=== PATIENT | male | born 1970 | race Hispanic/Latino ===

== ENCOUNTER 2020-12-05 15:12 | Observation (INO) | payer BC, OTHER ==
--- OUTSIDE RECORDS SUMMARY | 2020-12-05 15:17 | XMS REPORT | Continuity of Care Document ---
:1970 Author Organization [facility] t Address [address] [place] [address] Care Team Providers Name Role Phone David Goel Attending Clinician Problems Condition Condition Condition Status Onset Resolution Last Treating Co mments Source Name Details Category Date Date Treatment Clinician Date M5.12 - Diagnosis Active [id number] M emoria RADICULOPA 1- 11:36:00 l THY, M54.12 - 00:01: [place] n CERVICAL RADICULOPA 00 REGION THY, CERVICAL REGION Active 09/15/2019 [facility] [place] NECK, BACK Diagnosis Active 2019-12-29 Memoria KNEE PAIN 9- 23:59:00 l NECK, 08:00: [place] BACK KNEE 00 PAIN Active 07/12/2019 S[facility] [place] Simple Problem Active 2020-01-23 Memor ia obesity 00:16:44 l (disorder) Simple Herm karin obesity (disorder) Active Problem 01/23/2020 [facility] [place] Allergies, Adverse Reactions, Alerts Allergy Allergy Status Severity Reaction(s) Onset Inactive Treating Comm ents Source Name Type Date Date Clinician No Known No Known Active Memori a Medicati Medicati l on on Aníbal Allergie Allergie s s Social History Smoking Status Start Date Stop Date Source Social History [facility] Medications Ordered Filled Start Stop Current Ordering Indication Dosage Frequency Signature Comments Components Source Medication Medication Date Date Medication? Clinician (SIG) Name Name naproxen Yes 500 mg = 1 Mem oria 500 mg oral 3-10 tab, PO, l enteric 19:44: BID, # 60 Kathie nn coated 00 tab, 0 delayed-rel Refill(s), ease tablet Pharmacy: [facility] #[id number] Famotidine Yes 1 tab, PO, M emoria 26.6 MG / 3-05 TID, PRN l Ibuprofen 16:58: Pain, X 30 He rmann 800 MG Oral 00 day, # 90 Tablet tab, 0 [Duexis] Refill(s), Pharmacy: [facility] 2018-11 No 40 mg, Steve rogers ne 11-11 Route: l ACETONIDE 14:14: intra-RENATA He rmann 40 mg/mL 00 CULAR, injectable Drug form: suspension INJ, ONCE, Dosing Weight 103.182, kg, (KENALOG), Start date: 09/11/19 9:14:00 CDT, Stop date: 09/11/19 9:14:00 CDT predniSONE 2018-11 Yes 40 mg = 2 Me moria 20 mg oral 0-04 tab, PO, l tablet 15:29: Daily, X 5 Kathie nn day, # 10 tab, 0 Refill(s), [id number] amoxicillin 2018-11 Yes 500 mg = 1 Memoria 500 mg oral 0-04 tab, PO, l tablet 14:58: Q8H, 0 [place] 00 Refill(s) Vital Signs Vital Name Observation Time Observation Value Comments Source BP Diastolic 2019-02-17 00:00:00 86 mm[Hg] [facility] Height 2019-02-17 00:00:00 69 [in_i] [facility] BMI (Body Mass 2019-02-17 00:00:00 34 kg/m2 [facility]) Group BP Systolic 2019-02-17 00:00:00 122 mm[Hg] [facility] Body Weight 2019-02-17 00:00:00 230 [lb_av] [facility] Height 2020-01-14 16:02:00 176.53 cm [facility] Weight 2020-01-14 16:02:00 [facility] BMI Calculated 2020-01-14 16:02:00 Memori al [place] Systolic (mm Hg) 2020-01-14 16:02:00 Steve rial Aníbal Diastolic (mm Hg) 2020-01-14 16:02:00 Mem orial Aníbal Heart Rate 2020-01-14 16:02:00 [facility] Temperature Oral (F) 2020-01-14 16:02:00 98.0 F [facility] [place] Systolic (mm Hg) 2019-09-11 13:17:00 Steve rial [place] Diastolic (mm Hg) 2019-09-11 13:17:00 Mem orial Aníbal Heart Rate 2019-09-11 13:17:00 [facility] Height 2019-09-11 13:17:00 176.53 cm [facility] [place] Weight 2019-09-11 13:17:00 [facility] BMI Calculated 2019-09-11 13:17:00 Memori al Aníbal Systolic (mm Hg) 2019-08-14 14:50:00 Steve rial [place] Diastolic (mm Hg) 2019-08-14 14:50:00 Mem orial Aníbal Heart Rate 2019-08-14 14:50:00 [facility] Height 2019-08-14 14:50:00 176.53 cm [facility] [place] Weight 2019-08-14 14:50:00 [facility] [place] BMI Calculated 2019-08-14 14:50:00 Memori al Aníbal Procedures Procedure Date / Time Performing Clinician Source Performed Arthrocentesis, 2019-09-11 14:14:00 [facility] aspiration and/or injection, major joint or bursa (eg, shoulder, hip, knee, subacromial bursa); without ultrasound guidance TYMPANOMETRY 2019-02-17 00:00:00 [facility] Carpal Tunnel Surgery [facility] Plan of Care Planned Activity Planned Date Details Comments Source Instructions Analy Medic al Group Encounters Start End Encounter Admission Attending Care Care Encounter Source Date/Time Date/Time Type Type Clinicians Facility Department ID 2020-01-19 2020-01-20 Outpatient [facility] [id number] 10:46:24 23:59:59 00 2020-01-14 2020-01-14 [facility] [id number] 10:00:00 23:59:59 Vincjolene Quan 2019-09-11 2019-09-11 Outpatient Manasa [facility] [id number] 08:30:00 23:59:59 Vincent Quan 2019-08-14 2019-08-14 [facility] [id number] 10:00:00 23:59:59 Vincent Quan 2019-08-14 2019-08-14 Outpatient Manasa [id number] [id number] 11:05:00 23:59:00 David Glass 2019-02-17 2019-02-17 Otilio [facility] [place] - [id number] [facility] 00:00:00 00:00:00 MD Olive: [address] Group [facility] - [address], Otolaryngol [place], [facility] [place] [address] , Ph. Results Test Description Test Time Test Comments Results Result Comments Source tympanogram 2019-02-17 15:04:27 Test Item Value Reference Range Interpretation Comme nts Right (test code = Right) Type A Normal Left (test code = Left) Type A Normal [facility]
--- OUTSIDE RECORDS SUMMARY | 2020-12-05 15:17 | XMS REPORT | Continuity of Care Document ---
:1970 Author Organization [facility] Care Team Providers Name Role Phone [facility] Unavailable Un available Problems Problem Status Onset Classification Date Comments Sourc e Date Reported M54.12 - Active [facility] RADICULOPATHY 9 [place] , CERVICAL REGION NECK, BACK Active [facility] KNEE PAIN 9 [place] Simple Active Problem 01/23/2020 Medica l obesity Group, (disorder) [facility] [place] Medications Medication Details Route Status Patient Ordering Order Source Instructions Provider Date naproxen 500 mg 500 mg = 1 Active oral enteric tab, PO, 020 Medical coated BID, # 60 Group delayed-release tab, 0 tablet Refill(s), Pharmacy: [facility] #[id number] Famotidine 26.6 1 tab, PO, Active MH MG / Ibuprofen TID, PRN 020 Medical 800 MG Oral Pain, X 30 Group Tablet [Duexis] day, # 90 tab, 0 Refill(s), Pharmacy: [facility] triamcinolone 40 mg, Inactive ACETONIDE 40 Route: 019 Medical mg/mL injectable intra-ARTICU Gr oup suspension LAR, Drug form: INJ, ONCE, Dosing Weight 103.182, kg, (KENALOG), Start date: 09/11/19 9:14:00 CDT, Stop date: 09/11/19 9:14:00 CDT predniSONE 20 mg 40 mg = 2 Active oral tablet tab, PO, 019 Medical Daily, X 5 Group day, # 10 tab, 0 Refill(s), Pharmacy: [facility] #[id number] amoxicillin 500 500 mg = 1 Active MH mg oral tablet tab, PO, 019 Medical Q8H, 0 Group Refill(s) Allergies, Adverse Reactions, Alerts Substance Category Reaction Severity Reaction Status Date Comments S ource type Reported No Known Assertion Drug Medication allergy Medic al Allergies Group Immunizations No Data Provided for This Section Results No Data Provided for This Section Pathology Reports No Data Provided for This Section Diagnostic Reports Report Value Date Source Spine cervical 2 or 3 STUDY: Cervical spine series, 4 views. 02/2019 [facility] [place] view DX COMPARISON: None HISTORY: - M54.12 Radiculopathy, cervical reg ion. FINDINGS: Cervical curvature: Straight ening of cervical curvature likely due to patient positioning or muscle spasm. Odontoid and lateral masses: Unremarkable. Vertebral body heights: Preserved. Intervertebral disc space: Preserved. Facet joints: Mild facet arthrosis in the lower cervical spine. Uncovertebral joints: Mild right uncovertebral a rthrosis at C5-C6. Perivertebral soft tissues: Within normal limits . IMPRESSION: Mild lower cervical spondylosis. Spine lumbar 2 or 3 STUDY: Lumbar spine series, 3 views. 019 [facility] [place] views DX COMPARISON: None HISTORY: - M54.5 Low back pain. FINDINGS: Lumbar curvature: Preserved. [id number]-[id number] lumbar vertebrae: Five. Vertebral body heights: Preserved. Intervertebral disc space: M ild disc height loss at L4-L5 and L5-S1. Bulky right paravertebral osteophytes is seen at L1-L2. Facet joints: Within normal limits. Perivertebral soft tissues: Within normal limits . IMPRESSION: Mild disc height loss at L4-L5 and L5-S1. Bulky osteophyte at L1-L2. Knee 3 Views Bilateral EXAM: Knee 3 Views Bilateral DX 9 [facility] [place] DX DATE: 08/14/2019 11:16 CDT. INDICATION: - M25.569 Pain in unspecified kne e. COMPARISON: None available. TECHNIQUE: 3 views of the bilateral knees. FINDINGS: No acute fracture or malalignment is identified. Ossific fragments in the popliteal fossa of the right knee. No knee joint effusion is detected. No acute soft tissue abnormality is identified. IMPRESSION: No significant degenerative changes. Few ossific fragments in the right popliteal fossa. For ligamentous injury, recommend orthopedic consultation and knee MR as clinically indicated. Consultation Notes No Data Provided for This Section Discharge Summaries No Data Provided for This Section History and Physicals No Data Provided for This Section Vital Signs Vital Sign Value Date Comments Source Height 176.53 cm 01/14/2020 [facility] Weight 101.818 01/14/2020 [facility] BMI Calculated 32.67 01/14/2020 [facility] Systolic (mm Hg) 109 01/14/2020 Medical Group Diastolic (mm Hg) 74 01/14/2020 Medical Group Heart Rate 95 01/14/2020 [facility] Temperature Oral (F) 98.0 F 01/14/2020 [facility]i reji Group Systolic (mm Hg) 116 09/11/2019 Medical Group Diastolic (mm Hg) 80 09/11/2019 Medical Group Heart Rate 99 09/11/2019 [facility] p Height 176.53 cm 09/11/2019 [facility] p Weight 103.182 09/11/2019 Medical [facility] p BMI Calculated 33.11 09/11/2019 [facility] oup Systolic (mm Hg) 114 08/14/2019 Medical Group Diastolic (mm Hg) 71 08/14/2019 Medical Group Heart Rate 86 08/14/2019 Medical [facility] p Height 176.53 cm 08/14/2019 [facility] p Weight 102.273 08/14/2019 Medical Gr[facility] p BMI Calculated 32.82 08/14/2019 [facility] Encounters Location Location Encounter Encounter Reason Attending ADM [place] Stat us Source Details Type Number For Provider Date Date Visit Outpatient [id number] 08/14 [facility] Outpatient [id number] 08/14 Primary [facility] [place] [facility] Outpt Diag [id number] 08/14 [facility] Outpatient Services [facility] [place] Outpatient [id number] 09/[address] [facility] Outpatient [id number] 09/11 Primary [facility] [place] Outpatient [id number] 10/[address] [facility] [place] Outpatient [id number] 01/13 [facility] Outpatient [id number] 01/13 [facility] [place] [facility] Phone [phone] 01/18 01/20 Primary Message /2019 [facility] [place] Procedures Procedure Code Date Perfomer Comments Source Arthrocentesis, 09/11/2019 Medica l aspiration and/or Group injection, major joint or bursa (eg, shoulder, hip, knee, subacromial bursa); without ultrasound guidance Assessment and Plan No Data Provided for This Section Plan of Care No Data Provided for This Section Social History Social History Date Source Social History TypeResponse 01/14/2020 [facility] Smoking Status Never smoker; Exposure to Tobacco Smoke None; Cigarette Smoking Last 365 Days No; Reg Smoking Cessation Counseling No entered on: 01/14/20 Social History TypeResponse 08/14/2019 [facility] [place] Smoking Status Never smoker; Exposure to Tobacco Smoke None; Cigarette Smoking Last 365 Days No; Reg Smoking Cessation Counseling No entered on: 08/14/19 Family History No Data Provided for This Section Advance Directives No Data Provided for This Section Functional Status No Data Provided for This Section
[2020-12-05] MEDS ORDERED: NA CHLORIDE 0.9% 1,000 ML ONE ×2 (15:35→18:21)
[2020-12-05 15:36] LABS: Absolute Lymphocytes (CBC) 1.5 K/uL (0.7-4.9); Basophils % 0.8 % (0-1.3); Hematocrit 46.1 % (39.6-49.0); Lymphocytes % 19.2 % (15.3-44.8); MPV 7.9 fL (7.6-11.3)
[2020-12-05 15:37] LABS: Protime INR 1.05
[2020-12-05 15:52] LABS: BUN Blood Urea Nitrogen 12 mg/dL (7-18); Bicarbonate 23 mmol/L (21-32); Glucose Level 186 mg/dL (74-106); Magnesium 2.1 mg/dL (1.8-2.4); NT PRO-BNP 15 pg/mL (<125); Potassium 3.5 mmol/L (3.5-5.1); Sodium Level 138 mmol/L (136-145); Troponin (Emerg Dept Use Only) < 0.02 ng/mL (0.0-0.045)
--- NOTE | 2020-12-05 16:32 | RAD REPORT ---
EXAM DESCRIPTION: RAD - Chest Single View - 12/05/2020 4:16 pm CLINICAL HISTORY: PALPITATIONS, COVID positive test result October 2020 COMPARISON: Two view chest August 2016 TECHNIQUE: AP portable chest image was obtained 12/05/2020 4:16 pm . FINDINGS: Lung volumes are low. No focal mass or consolidation. No failure or volume overload. Heart and vasculature are normal. No measurable pleural effusion and no pneumothorax. No acute bony abnorm ality seen. No acute aortic findings suspected. IMPRESSION: No acute cardiopulmonary process. No significant change from comparison.
--- NOTE | 2020-12-05 16:39 | RAD REPORT ---
EXAM DESCRIPTION: CT - Chest For Pe Angio - 12/05/2020 4:16 pm CLINICAL HISTORY: PALPITATIONS COMPARISON: Chest Single View dated 12/05/2020 TECHNIQUE: Dynamically enhanced 3 mm thick images of the chest were obtained during administration o f approximately 150mL Isovue 370 IV contrast. Coronal and oblique MIP reconstruction images were gene rated and reviewed. Exam utilizes a protocol to evaluate the pulmonary arterial tree. All CT scans are performed using dose optimization technique as appropriate and may include automated exposure control or mA/KV adjustment according to patient size. FINDINGS: No pulmonary emboli are identified. The aorta as imaged shows no acute or suspicious finding. No pericardial thickening or effusion. No mass or consolidation. Patient has a few faint areas of ground-glass opacification present. Findin g is minimal and could be atelectasis or minimal edema. Findings could be very earliest stages of the COVID-19 pneumonia given the current clinical environment. Non COVID viral infiltrate would be possi ble. These are minimal findings. No pneumothorax or pleural effusion. No mediastinal or hilar suspicious masses. No chest wall masses or abnormal axillary lymphadenopathy. Bilateral gynecomastia present. Very small hiatal hernia present. IMPRESSION: No pulmonary emboli identified. Patient has very minimal airspace opacities present. Findings are not yet sufficient for COVID-19 pne umonia diagnosis though very earliest form is possible given the current clinical environment.Atelect asis, minimal alveolar edema and non COVID viral processes are possible.
--- NOTE | 2020-12-05 17:17 | EDPHYS ---
Physician Documentation [facility] Name: Jose Welsh Age: 50 yrs Sex: Male : 1970 Arrival Date: 12/05/2020 Time: 15:13 Bed 7 Private MD: ED Physician Moises Lujan HPI: 12/05 15:16 This 50 yrs old Male presents to ER via EMS with complaints of Dizziness. rn 15:16 The patient presents with dizziness, feeling faint, generalized weakness, rn lightheadedness. Onset: The symptoms/episode began/occurred just prior to arrival. Context: occurred at work, occurred while the patient was working, just prior to the episode the patient experienced no apparent symptoms. Modifying factors: the symptoms are aggravated by movement of head, standing up. Severity of symptoms: At their worst the symptoms were moderate in the emergency department the symptoms have improved. The patient has not experienced similar symptoms in the past. The patient has not recently seen a physician. Reports dizziness that began while working, using hand tools, denies chest pain, reports felt lightheaded and like might pass out. [place] palpitations. Diagnosed with COVID 1 month ago, doesn't feel like completely got over it, still feels intermittent sob. No hemoptysis. NO productive cough. No blood in stool. . Historical: - Allergies: 15:33 No Known Allergies; jl7 - Home Meds: 15:33 None [Active]; jl7 - PMHx: 15:33 None; jl7 - PSHx: 15:33 None; jl7 - Immunization history:: Adult Immunizations unknown. - Social history:: Smoking status: Patient denies any tobacco usage or history of. - Family history:: not pertinent. - Hospitalizations: : No recent hospitalization is reported. ROS: 15:16 Constitutional: Negative for fever, chills, and weight loss, Eyes: Negative for injury, rn pain, redness, and discharge, Neck: Negative for injury, pain, and swelling, Cardiovascular: Negative for edema Respiratory: Negative for cough, wheezing, and pleuritic chest pain, Abdomen/GI: Negative for abdominal pain, nausea, vomiting, diarrhea, and constipation, MS/Extremity: Negative for injury and deformity, Skin: Negative for injury, rash, and discoloration, Neuro: Negative for headache, numbness, tingling, and seizure. Exam: 15:16 Constitutional: This is a well developed, well nourished patient who is awake, alert, rn and in no acute distress. Head/Face: Normocephalic, atraumatic. Eyes: Pupils equal round and reactive to light, extra-ocular motions intact. Lids and lashes normal. Conjunctiva and sclera are non-icteric and not injected. Cornea within normal limits. Periorbital areas with no swelling, redness, or edema. ENT: dry MM Cardiovascular: Tachycardic, regular Respiratory: Speaking full sentences, unlabored. No increased work of breathing, no retractions or nasal flaring. Abdomen/GI: Soft, non-tender Skin: Warm, dry MS/ Extremity: Pulses equal, no cyanosis. Neuro: Awake and alert, GCS 15, oriented to person, place, time, and situation. Cranial nerves II-XII grossly intact. Motor strength 5/5 in all extremities. Sensory grossly intact. Cerebellar exam normal. 15:29 ECG was reviewed by the Attending Physician. rn Vital Signs: 15:14 BP 125 / 85; Pulse 114; Resp 17; Temp 98.7(O); Pulse Ox 97% on R/A; sv 15:36 BP 136 / 89; Pulse 103; Resp 14; Pulse Ox 98% ; Weight 102.06 kg; jl7 16:42 BP 118 / 87; Pulse 101; Resp 20; Pulse Ox 96% ; sv MDM: 15:14 Patient medically screened. rn 17:10 Differential diagnosis: cardiac arrhythmia, generalized weakness, hyperventilation, rn hypovolemia, idiopathic dizziness, near-syncope, PE, COVID. 17:11 Data reviewed: vital signs, nurses notes, lab test result(s), EKG, radiologic studies, rn CT scan, plain films, and as a result, I will admit patient. Counseling: I had a detailed discussion with the patient and/or guardian regarding: the historical points, exam findings, and any diagnostic results supporting the discharge/admit diagnosis, lab results, radiology results, the need for further work-up and treatment in the hospital. ED course: Pt still tachycardic, twave inversions anterior leads, CT PE neg, reports exertional dizziness and palpitations along with near syncope. Trop neg. Will admit to Dr. Lujan for cardiac eval and further care. . 12/05 15:16 Order name: Basic Metabolic Panel rn 12/05 15:16 Order name: CBC with Diff; Complete Time: 16:08 rn 12/05 15:16 Order name: Magnesium; Complete Time: 16:08 rn 12/05 15:16 Order name: NT PRO-BNP; Complete Time: 16:08 12/05 15:16 Order name: PT-INR; Complete Time: 16:08 rn 12/05 15:16 Order name: Troponin (emerg Dept Use Only); Complete Time: 16:08 rn 12/05 15:16 Order name: XRAY Chest (1 view); Complete Time: 16:57 rn 12/05 15:16 Order name: EKG; Complete Time: 15:17 12/05 15:16 Order name: CT Chest For PE Angio; Complete Time: 16:57 rn 12/05 15:16 Order name: Basic Metabolic Panel; Complete Time: 16:08 EDMS 12/05 15:16 Order name: Cardiac monitoring; Complete Time: 15:36 12/05 15:16 Order name: EKG - Nurse/Tech; Complete Time: 15:12/05 15:16 Order name: IV Saline Lock; Complete Time: 15:36 12/05 15:16 Order name: Labs collected and sent; Complete Time: 15:35 12/05 15:16 Order name: O2 Per Protocol; Complete Time: 15:35 12/05 15:16 Order name: O2 Sat Monitoring; Complete Time: 15:35 12/05 17:40 Order name: CONS Physician Consult; Complete Time: 18:21 EDMS EC:29 Rate is 109 beats/min. Rhythm is regular. MO interval is normal. QRS interval is rn normal. QT interval is normal. No Q waves. T waves are Inverted in leads V1, V2, V3. No ST changes noted. Clinical impression: NSR w/ Non-specific ST/T Changes and Sinus tachycardia. Interpreted by me. Reviewed by me. Administered Medications: 15:35 Drug: NS 0.9% 1000 ml Route: IV; Rate: 1000 ml; Site: right forearm; jl7 16:30 Follow up: Response: No adverse reaction; IV Status: Completed infusion; IV Intake: jl7 1000ml 18:00 Drug: ToPROL XL 25 mg Route: PO; jl7 19:11 Follow up: Response: No adverse reaction jl7 18:05 Drug: NS 0.9% 1000 ml Route: IV; Rate: 1 bolus; Site: right forearm; 7 19:11 Follow up: IV Status: Completed infusion jl7 Disposition: 12/05/20 17:17 Hospitalization ordered by Radhames Lujan for Observation. Preliminary diagnosis are Palpitations, Dyspnea, unspecified, Near syncope. - Bed requested for Telemetry/MedSurg (observation). - Status is Observation. rv - Condition is Stable. - Problem is new. - Symptoms have improved. Signatures: Dispatcher [employer] EDCO Moises Lujan MD MD rn Leal, Jahala, RN RN jl7 Rah Telles RN RN rv Corrections: (The following items were deleted from the chart) 18:11 17:12 CORONAVIRUS+MR.LAB.BRZ ordered. [facility] 19:35 17:17 Hospitalization Ordered by Radhames Lujan MD for Observation. Preliminary rv diagnosis is Palpitations; Dyspnea, unspecified; Near syncope. Bed requested for Telemetry/MedSurg (observation). Status is Observation. Condition is Stable. Problem is new. Symptoms have improved. rn
--- NOTE | 2020-12-05 17:17 | ER ---
Nurse's Notes [facility] Name: Jose Welsh Age: 50 yrs Sex: Male : 1970 Arrival Date: 12/05/2020 Time: 15:13 Bed 7 Private MD: Diagnosis: Palpitations;Dyspnea, unspecified;Near syncope Presentation: 12/05 15:14 Coronavirus screen: Client reports previous positive COVID test result. Date of sv collection: October 2020. Ebola Screen: No symptoms or risks identified at this time. Initial Sepsis Screen: Does the patient meet any 2 criteria? HR > 90 bpm. No. Patient's initial sepsis screen is negative. Does the patient have a suspected source of infection? No. Patient's initial sepsis screen is negative. Risk Assessment: Do you want to hurt yourself or someone else? Patient reports no desire to harm self or others. 15:14 Method Of Arrival: EMS: [facility] sv 15:15 Chief complaint: EMS states: At work and reported feeling 'faint', denies pain, had jl7 COVID in October 2020, HR 129, diaphoretic on arrival, BGL 159. Onset of symptoms is unknown. Care prior to arrival: None. Transition of care: patient was not received from another setting of care. 15:15 Acuity: ADILENE 2 jl7 Triage Assessment: 15:15 General: Appears in no apparent distress. uncomfortable, Behavior is calm, cooperative, jl7 appropriate for age. Pain: Denies pain. Neuro: Level of Consciousness is awake, alert, obeys commands, Oriented to person, place, time, situation. Cardiovascular: Patient's skin is warm and dry. Respiratory: Airway is patent Respiratory effort is even, unlabored, Respiratory pattern is regular, symmetrical. GI: No signs and/or symptoms were reported involving the gastrointestinal system. : No signs and/or symptoms were reported regarding the genitourinary system. Derm: Skin is diaphoretic, Skin is normal, Skin temperature is cool. Historical: - Allergies: 15:33 No Known Allergies; jl7 - Home Meds: 15:33 None [Active]; jl7 - PMHx: 15:33 None; jl7 - PSHx: 15:33 None; jl7 - Immunization history:: Adult Immunizations unknown. - Social history:: Smoking status: Patient denies any tobacco usage or history of. - Family history:: not pertinent. - Hospitalizations: : No recent hospitalization is reported. Screenin:15 Abuse screen: Denies threats or abuse. Denies injuries from another. Nutritional sv screening: No deficits noted. Tuberculosis screening: No symptoms or risk factors identified. Fall Risk None identified. Assessment: 15:35 General: See triage assessment. jl7 16:21 Reassessment: Senia [phone]. hb 18:00 Reassessment: Hospitalist Dr. Lujan at bedside, VO for 25 mg Toprol XL PO x 1 and 1 L jl7 NS bolus and then pt will be discharged. Vital Signs: 15:14 BP 125 / 85; Pulse 114; Resp 17; Temp 98.7(O); Pulse Ox 97% on R/A; sv 15:36 BP 136 / 89; Pulse 103; Resp 14; Pulse Ox 98% ; Weight 102.06 kg; jl7 16:42 BP 118 / 87; Pulse 101; Resp 20; Pulse Ox 96% ; sv ED Course: 15:13 Patient arrived in ED. ds1 15:13 Zoe Christian, RN is Primary Nurse. sv 15:14 Moises Lujan MD is Attending Physician. rn 15:15 Arm band placed on. sv 15:15 Patient has correct armband on for positive identification. Placed in gown. Bed in low sv position. Call light in reach. Side rails up X2. court recording monitor on. Pulse ox on. NIBP on. Door closed. Head of bed elevated. 15:29 Primary Nurse role handed off by Zoe Christian RN jl7 15:29 Helen Garcia, YAQUELIN is Primary Nurse. jl7 15:32 Triage completed. jl7 15:34 Initial lab(s) drawn, by mt, sent to lab. EKG done, by ED staff, reviewed by Moises Lujan MD. Inserted saline lock: 20 gauge in right forearm, using aseptic technique. Blood collected. 15:46 Basic Metabolic Panel Sent. sv 16:16 XRAY Chest (1 view) In Process Unspecified. EDMS 16:16 CT Chest For PE Angio In Process Unspecified. EDMS 17:16 Radhames Lujan MD is Hospitalizing Provider. rn 18:21 COVID swab sent to lab. mh5 19:15 Primary Nurse role handed off by Helen Garcia RN mw2 19:34 Rah Telles, RN is Primary Nurse. rv 19:34 No provider procedures requiring assistance completed. IV discontinued, intact, rv bleeding controlled, No redness/swelling at site. Pressure dressing applied. Administered Medications: 15:35 Drug: NS 0.9% 1000 ml Route: IV; Rate: 1000 ml; Site: right forearm; jl7 16:30 Follow up: Response: No adverse reaction; IV Status: Completed infusion; IV Intake: jl7 1000ml 18:00 Drug: ToPROL XL 25 mg Route: PO; jl7 19:11 Follow up: Response: No adverse reaction jl7 18:05 Drug: NS 0.9% 1000 ml Route: IV; Rate: 1 bolus; Site: right forearm; jl7 19:11 Follow up: IV Status: Completed infusion jl7 Intake: 16:30 IV: 1000ml; Total: 1000ml. jl7 Outcome: 17:17 Decision to Hospitalize by Provider. rn 19:35 Admitted to ER Hold. Please see [facility] for further documentation. rv 19:35 Condition: improved 19:35 Instructed on the need for admit. 19:35 Patient left the ED. rv Signatures: Dispatcher [employer] EDMS Zoe Christian RN Padmini Grijalva ds1 Moises Lujan MD MD rn Baxter, Heather, RN RN hb Martinez, Maria [facility] Helen Garcia RN RN jl7 Trevon Serra mw2 Rah Telles RN RN rv
--- NOTE | 2020-12-05 18:18 | P.SSS ---
Patient History Date of Service: 12/05/20 Reason for admission: Palpitations, lightheadedness History of Present Illness: 50-year-old male, no significant past medical history presents to the ED after a few brief episodes of dizziness and palpitations. 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 He states while he was working he felt lightheaded, palpitations, and some tingling in both arms. These episodes were brief and happened few more times. He has never felt anything like this before. He also reports a mild cough over the past few days. He otherwise denies any fevers, chills, chest pain, abdominal pain, rashes/lesions, and change in bowel/urinary habits, leg swelling. He does not smoke. In the ED, workup revealed a mildly elevated creatinine, negative troponin, and EKG with right bundle-branch block with T-wave inversions in leads V 2-4. CTA chest negative for PE. Notable for a very minimal airspace opacities present. Home Medications: Metoprolol Succinate [Toprol Xl] 25 mg PO DAILY 30 Days #30 tab.sr.24h 12/05/20 - Past Medical/Surgical History Diabetic: No Past Medical History: Patient denies medical history Past Surgical History: Patient denies surgical history - Family History Family History: Reviewed- Non-Contributory - Social History Smoking Status: Never smoker Alcohol use: Yes Place of Residence: Home Review of Systems 10-point ROS is otherwise unremarkable Physical Examination - Physical Exam General: Alert, In no apparent distress, Oriented x3 HEENT: Sclerae nonicteric Neck: Supple Respiratory: Clear to auscultation bilaterally, Normal air movement Cardiovascular: No edema, No rubs, No murmurs, Irregular heart rate/rhythm (Sinus tachycardia HR: 95-110) Gastrointestinal: Soft and benign, Non-distended, No tenderness Musculoskeletal: No tenderness Integumentary: No rashes, No significant lesion Neurological: Normal speech, Normal strength at 5/5 x4 extr Urinary: Other (Urinal with dark dinorah urine) - Studies Laboratory Data (last 24 hrs) 12/05/20 15:15: PT 12.4, INR 1.05 12/05/20 15:15: WBC 7.70, Hgb 15.4, Hct 46.1, Plt Count 300 12/05/20 15:15: Sodium 138, Potassium 3.5, BUN 12, Creatinine 1.44 H, Glucose 186 H, Magnesium 2.1 Treatment Summary: Patient received 1 L IV fluid bolus in the ED with slight improvement of his heart rate. He was admitted for further evaluation. Cardiology was consulted, reviewed the EKG and felt the patient was okay for discharge home on Toprol-XL 25 mg daily, and to follow up in their office tomorrow morning at 8 a.m. Patient was given additional 1L IVF and Toprol XL. Patient felt well and was in agreement with the plan. - Disposition Discharge Date: 12/05/20 Disposition: ROUTINE DISCHARGE Condition: GOOD Prescriptions: Metoprolol Succinate [Toprol Xl] 25 mg PO DAILY 30 Days #30 tab.sr.24h Followup: KeanuOTKeanuOT [Primary Care Provider] - Patient Discharge Instructions: You were found to have sinus tachycardia and a right bundle branch block. You were also found to be dehydrated. You are discharged with a prescription for metoprolol 25mg once a day. You are to follow up with Dr. Lipscomb (Cardiology) in his office tomorrow (12/06) at 8am. Diet: Regular Activity: Ad kimberlee Time Spent Managing Pts Care (In Minutes): 60
[2020-12-05] MEDS ORDERED: METOPROLOL XL 50 MG TAB PO ONE (18:21)
[2020-12-05] MEDS ORDERED: NA CHLORIDE 0.9% 1,000 ML IV SCH (19:03)
[2020-12-05] MEDS ORDERED: ACETAMINOPHEN 500 MG TAB PO PRN (19:03)
[2020-12-05] MEDS ORDERED: METOPROLOL XL 25 MG TAB PO SCH (19:03)
[2020-12-05 19:06] VITALS: BP 129/87
[2020-12-05 19:18] VITALS: BMI 32.5
[2020-12-05 19:40] VITALS: TEMP 98.7
[2020-12-05 19:42] VITALS: O2SAT 96
[2020-12-05] MEDS ORDERED: ATORVASTATIN 40 MG TAB PO SCH (21:00)
[2020-12-06] MEDS ORDERED: ASPIRIN EC 81 MG TAB PO SCH (09:00)
[2020-12-06] MEDS ORDERED: ENOXAPARIN 40 MG/0.4 ML SQ SCH (09:00)
--- NOTE | 2020-12-07 06:33 | EKG ---
Test Date: 2020-12-05 Test Time: 15:23:44 M48/M60 Tank Driver: CLAUDETTE MEASUREMENT RESULTS: Intervals: Rate: 109 MT: 150 QRSD: 76 QT: 330 QTc: 444 [place]: P: 54 MT: 150 QRS: 80 T: 33 INTERPRETIVE STATEMENTS: Sinus tachycardia ST & T wave abnormality, consider anterior ischemia Abnormal ECG No previous ECG available for comparison Electronically Signed On 12-07-20 06:27:41 SAUSAGE GRINDER by Morris Lipscomb
== END 2020-12-05 19:34 | disposition home or self-care (01) ==
LOC: ER 15:12 → ERHOLD 18:31
PROVIDERS: ADMIT Hospitalist; ATTEND Hospitalist
DX: R00.0 Tachycardia, unspecified (principal); I45.10 Unspecified right bundle-branch block; E86.0 Dehydration; R05 Cough; Z86.16 Personal history of COVID-19; Z20.822 Contact with and (suspected) exposure to COVID-19
CPT/HCPCS: 96361; 93005; 85025; 80048; 36415; 83735; 85610; 84484; 83880; 71275; 71045; 96360; 99285; U0003; Q9967; J7030 ×2; G0378